=== PATIENT | male | born 1940 | race Hispanic/Latino ===

== ENCOUNTER 2018-01-19 10:24 | Observation (INO) | payer OTHER ==
[~2018-01-19] VITALS: Ht 165.1 cm; Wt 80.3 kg
[~2018-01-19 10:24] MED LIST: ASA-CA CARB-MA325 MG; ASPIR 8181 MG PO; FUROSEMIDE20 MG PO; GLIPIZIDE5 MG PO; LOSARTAN POTASS50 MG PO; OMEGA-31000 MG PO; OMEPRAZOLE20 M1 PO; PRAVASTATIN SOD40 MG PO; Z LOFIBRA; Z.0.GLIPIZIDE5 MG; Z.0.OMEPRAZOLE20 MG; Z.0.SIMVASTATIN80 MG
[2018-01-19] MEDS ORDERED: AMLODIPINE BESYL5 MG PO (10:46)
[2018-01-19] MEDS ORDERED: WARFARIN SODIUM2 MG PO (10:46)
[2018-01-19] MEDS ORDERED: ASPIRIN 81 MG CHEW TAB PO ONE ×2 (11:00→11:45)
[2018-01-19 11:44] LABS: BASOPHILS # (AUTO) 0.1 (0.0-0.1); BASOPHILS % 1.1 % (0.0-1.0); EOSINOPHILS # (AUTO) 0.5 (0.0-0.4); EOSINOPHILS % 6.9 % (0.0-6.0); HEMATOCRIT 31.7 % (38.2-49.6); HEMOGLOBIN 10.6 g/dL (14.0-18.0); LYMPHOCYTES # (AUTO) 1.5 (1.0-3.2); LYMPHOCYTES % 20.1 % (18.0-39.1); MEAN CORPUSCULAR HEMOGLOBIN 31.5 pg (28-32); MEAN CORPUSCULAR HGB CONC 33.4 g/dL (31-35); MEAN CORPUSCULAR VOLUME 94.1 fL (81-99); MONOCYTES # (AUTO) 0.6 (0.2-0.8); MONOCYTES % 8.7 % (4.4-11.3); NEUTROPHILS # (AUTO) 4.6 (2.1-6.9); NEUTROPHILS % 62.6 % (38.7-80.0); PLATELET COUNT 226 x10e3/uL (140-360); RED BLOOD COUNT 3.37 x10e6/uL (4.3-5.7); RED CELL DISTRIBUTION WIDTH 14.1 % (11.7-14.4)
[2018-01-19 11:48] LABS: BILIRUBIN,URINE NEGATIVE (NEGATIVE); CLARITY,URINE SL CLOUDY (CLEAR); COLOR,URINE YELLOW (YELLOW); KETONES,URINE NEGATIVE (NEGATIVE); LEUKOCYTE ESTERASE ,URINE NEGATIVE (NEGATIVE); NITRITE,URINE NEGATIVE (NEGATIVE); PROTEIN,URINE DIPSTICK 2+ (NEGATIVE); URINE UROBILINOGEN 0.2 mg/dL (0.2 - 1)
--- NOTE | 2018-01-19 11:53 | Diagnostic Imaging Report ---
PROCEDURE: A single AP view of the chest. COMPARISON: Chest radiograph 09/15/10. INDICATIONS: DIZZY, WEAKNESS FINDINGS: Lines/tubes: Right sided tunneled catheter with dual lumens, with tip projecting near the cavoatrial junction. The apex of the tunneled catheter is not fully visualized. Lungs: The lungs are well inflated and clear. There is no evidence of pneumonia or pulmonary edema. Pleura: There is no pleural effusion or pneumothorax. Heart and mediastinum: The cardiomediastinal silhouette is unremarkable. Bones and soft tissues: No acute bony abnormality. Surgical clips project over the right neck. IMPRESSION: No acute cardiopulmonary disease. Dictated by: EDUARDO CARRASCO M.D. on 01/19/2018 at 11:58 Electronically approved by: EDUARDO CARRASCO M.D. on 01/19/2018 at 11:58
[2018-01-19 12:01] LABS: AMORPHOUS SEDIMENT,URINE MODERATE (FEW); BACTERIA,URINE FEW /HPF; EPITHELIAL CELLS,URINE FEW /LPF; WBC,URINE (MAN) 0-5 /HPF (0-5)
--- NOTE | 2018-01-19 12:05 | Diagnostic Imaging Report ---
Examination: CT head without contrast Clinical Indication: Confusion. Altered mental status.. Technique: Transaxial noncontrast images from the skull base through the vertex were obtained. Sagittal and coronal reformatted images were done. Comparison: None. Findings: Scalp: No abnormalities. Bones: Intact. No fractures. No blastic or lytic lesions. Brain sulci: Moderate volume loss for patient's age. Ventricles: No hydrocephalus. Extra-axial space: No abnormalities. Parenchyma: There are confluent areas of low-attenuation within subcortical and periventricular white matter, nonspecific, but could represent microvascular ischemic disease. No masses, hemorrhage, or acute or chronic cortical based vascular insults. Suprasellar region: No abnormalities. Craniocervical junction: The foramen magnum is patent. No Chiari one malformation. Impression: 1. No acute intracranial finding. 2. Mild chronic microvascular ischemic change and moderate volume loss. Signed by: Dr. Alison Rojas M.D. on 01/19/2018 12:02 PM
[2018-01-19 12:25] LABS: ALBUMIN 3.3 g/dL (3.5-5.0); ALBUMIN/GLOBULIN RATIO 0.7 (0.8-2.0); ANION GAP 19.1 mmol/L (8-16); CALCIUM 8.5 mg/dL (8.4-10.2); POTASSIUM 4.1 mmol/L (3.5-5.1)
[2018-01-19 12:31] LABS: CREATINE KINASE MB 1.4 ng/mL (0-5.0)
[2018-01-19] MEDS ORDERED: SUPER B COMPLE150 MG PO (12:39)
[2018-01-19] MEDS ORDERED: CALCIUM ACETAT667 M1 PO (12:39)
[2018-01-19] MEDS ORDERED: ZOFRAN ODT4 MG PO (12:39)
[2018-01-19] MEDS ORDERED: GABAPENTIN100 MG PO (12:39)
[2018-01-19] MEDS ORDERED: CETIRIZINE PO (12:39)
[2018-01-19] MEDS ORDERED: TAMSULOSIN PO (12:39)
[2018-01-19] MEDS ORDERED: SENSIPAR30 MG PO (12:39)
[2018-01-19 13:34] VITALS: BP 130/62
[2018-01-19 13:44] VITALS: BP 130/62
[2018-01-19 14:08] LABS: MAGNESIUM 2.1 MG/DL (1.3-2.1)
[2018-01-19 14:09] LABS: INR 3.12; PROTHROMBIN TIME 30.2 seconds (11.9-14.5)
[2018-01-19 14:34] LABS: THYROID STIMULATING HORMONE 1.65 uIU/mL (0.350-4.940)
[2018-01-19 14:52] VITALS: BP 130/62
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
[2018-01-19 15:59] VITALS: BP 123/57
[2018-01-19 16:04] VITALS: BP 123/57
[2018-01-19] MEDS ORDERED: ACETAMINOPHEN 325 MG TAB PO PRN (17:00)
[2018-01-19 20:00] VITALS: BP 124/63
[2018-01-19 21:40] LABS: CREATINE KINASE MB 1.5 ng/mL (0-5.0)
[2018-01-20 00:20] VITALS: BP 121/59
[2018-01-20 04:55] LABS: CREATINE KINASE MB 1.5 ng/mL (0-5.0)
[2018-01-20 05:28] LABS: BASOPHILS # (AUTO) 0.1 (0.0-0.1); BASOPHILS % 0.9 % (0.0-1.0); EOSINOPHILS # (AUTO) 0.9 (0.0-0.4); EOSINOPHILS % 10.7 % (0.0-6.0); HEMATOCRIT 29.6 % (38.2-49.6); HEMOGLOBIN 10.1 g/dL (14.0-18.0); LYMPHOCYTES # (AUTO) 1.7 (1.0-3.2); LYMPHOCYTES % 21.5 % (18.0-39.1); MEAN CORPUSCULAR HGB CONC 34.1 g/dL (31-35); MEAN CORPUSCULAR VOLUME 93.7 fL (81-99); MONOCYTES # (AUTO) 0.8 (0.2-0.8); MONOCYTES % 9.2 % (4.4-11.3); NEUTROPHILS # (AUTO) 4.7 (2.1-6.9); NEUTROPHILS % 57.3 % (38.7-80.0); PLATELET COUNT 191 x10e3/uL (140-360); RED BLOOD COUNT 3.16 x10e6/uL (4.3-5.7); RED CELL DISTRIBUTION WIDTH 13.8 % (11.7-14.4)
[2018-01-20 05:48] VITALS: BP 124/59
[2018-01-20] MEDS ORDERED: NON-FORMULARY MEDICATION (Pravastatin Sodium 40 MG) PO SCH (07:45)
[2018-01-20 08:00] LABS: CHOL/HDL RATIO 3.5 (3.9-4.7)
[2018-01-20 08:42] VITALS: BP 138/70
[2018-01-20] MEDS ORDERED: GABAPENTIN 100 MG CAP PO SCH (09:00)
[2018-01-20] MEDS ORDERED: ASPIRIN 81 MG CHEW TAB PO SCH (09:00)
[2018-01-20] MEDS ORDERED: CINACALCET 30 MG TAB PO SCH (09:00)
[2018-01-20] MEDS ORDERED: ASPIRIN 81 MG ENTERIC COATED PO SCH (09:00)
[2018-01-20] MEDS ORDERED: AMLODIPINE BESYLATE 5 MG TAB PO SCH (09:00)
[2018-01-20] MEDS ORDERED: WARFARIN SOD 2 MG TAB PO SCH (09:00)
[2018-01-20] MEDS ORDERED: GABAPENTIN 300 MG CAP PO SCH (09:00)
--- NOTE | 2018-01-20 09:02 | History and Physical ---
PRIMARY CARE PHYSICIAN: Dr. Gray ENROLLMENT SERVICES DEAN: Dr. Sanchez CHIEF COMPLAINT: Passing out. HISTORY OF PRESENT ILLNESS: [place]-old man with a history of end-stage renal disease, on hemodialysis and diabetes mellitus type 2, now waking up with some shaking symptoms and then passed out on his bed. It is unknown how long he was passed out. Patient states that happened before. He did not have any focal weakness. Now, he has headache. CT scan done here was negative. Cardiology consulted. Denies any symptoms at this time. PAST MEDICAL HISTORY: End-stage renal disease, he is on hemodialysis; diabetes mellitus type 2; hypertension; hyperlipidemia; TIA; GERD; venous thromboembolism of the upper extremity. PAST SURGICAL HISTORY: Cholecystectomy, appendectomy, hemodialysis access. ALLERGIES: PER ELECTRONIC MEDICAL RECORD. FAMILY/SOCIAL HISTORY: Patient is . He has 1 child. No alcohol or illicits. He quit cigarettes 20 years ago. MEDICATIONS: Per electronic medical record. REVIEW OF SYSTEMS: Denies any dizziness, chest pain, shortness of breath, fever, chills, sweats, nausea, vomiting, diarrhea. PHYSICAL EXAMINATION: VITAL SIGNS: Have been reviewed. GENERAL APPEARANCE: Tired-appearing man resting in bed. HEENT: Anicteric. CARDIOVASCULAR: Normal S1 and S2. LUNGS: He has moderate breath sounds. ABDOMEN: Soft, nontender, nondistended. EXTREMITIES: No edema or calf tenderness. MUSCULOSKELETAL: There is right chest hemodialysis catheter. SKIN: Dry. PSYCHIATRIC: Flat affect. LABS: Reviewed. MEDICATIONS: Reviewed. ASSESSMENT: This is a 77-year-old man: 1. Syncope. 2. Anemia of chronic disease. 3. Diabetes mellitus type 2. 4. End-stage renal disease, on hemodialysis. 5. Obesity. 6. Hypertension. 7. History of venous thromboembolism of the upper extremity. 8. Gastroesophageal reflux disease. 9. Supratherapeutic INR. PLAN: 1. CT scan of brain negative. Patient now complaining of some discomfort in his head, which seems to be pulsatile in nature. Will obtain an MRI to rule out any other abnormality. 2. Nephrology consultation for dialysis. 3. Obtain orthostatic vital signs. 4. Will consult physical therapy. 5. Will hold Coumadin as INR is supratherapeutic at 3. . 6. Restart home medications. 7. Follow up cardiology recommendations. Possible stress test now versus outpatient. 8. Discharge planning. Job#: [id number]
--- NOTE | 2018-01-20 12:04 | Diagnostic Imaging Report ---
History: Pain the left side of the head. Comparison studies: CT head 01/19/2018 Technique: Sagittal T2; axial DWI, FLAIR, MPGR, T1, Coronal FLAIR. Intravenous contrast: None Findings: Scalp: Normal in signal . No masses . Bone marrow: Normal in signal intensity. Extra-axial: No masses, no fluid collections. Brain sulci: Mildly prominent. Ventricles: Moderately prominent . . Parenchyma: Scattered small T2/flair hyperintensities of the periventricular and deep white matter. Mild subependymal ventricular capping. Punctate focus of blooming at the left globus pallidus, related to chronic blood products. No masses, acute hemorrhage, acute or chronic vascular insults. Suprasellar region: No abnormalities. Craniocervical junction: No abnormalities. Patent foramen magnum. No Chiari one malformation. Vessels: Normal flow-voids in the arteries and sinuses. IMPRESSION: 1. No acute abnormalities. 2. Mild chronic microvascular ischemic changes of the white matter. 3. Prominent ventricular size out of proportion for the widening of the subarachnoid space, this could be related to central volume loss or normal pressure hydrocephalus, clinical correlation recommended Signed by: DR Michelet Brewer M.D. on 01/20/2018 12:00 PM
[2018-01-20 12:15] VITALS: BP 126/71
[2018-01-20] MEDS ORDERED: SODIUM CHLORIDE 0.9% 1000ML 1,000 ML ONE (15:39)
--- NOTE | 2018-01-20 15:51 | Consultation ---
DATE OF CONSULTATION: January 20, 2018 HISTORY OF PRESENT ILLNESS: Mr. Jhonatan Moraes is a pleasant 77-year-old gentleman known to our nephrology service who has been admitted with apparent shaking and possible syncope. A CT scan was negative. Cardiology has been consulted. Has underlying history of diabetes type 2 with end-stage renal disease, underlying hypertension, has been on dialysis with renal specialist at [facility] for about a year. He also has history of DVT in the upper extremities, history of TIA, GERD, hyperlipidemia, prior appendectomy and cholecystectomy. SOCIAL HISTORY: Patient is . Does not smoke or drink. Used to smoke in the past, has quit now. FAMILY HISTORY: Significant for hypertension. PHYSICAL EXAMINATION GENERAL: Awake, alert, lying supine. No apparent distress. VITALS: Blood pressure 120/59. Pulse rate 88. HEAD AND NECK: Cornea clear. Oral mucosa moist. Neck veins flat. LUNGS: Relatively clear except for bibasilar rales. HEART: S1 and S2 audible. No rubs or gallop. ABDOMEN: Otherwise soft and nontender. EXTREMITIES: No edema. ALLERGIES: He is allergic to PENICILLIN. CURRENT MEDICATIONS: Include famotidine, aspirin to chew, amlodipine 5 mg daily, gabapentin 300 mg daily, simvastatin 20 mg bedtime, Flomax 0.4 mg bedtime, warfarin 5 mg daily. IMPRESSION AND PLAN 1. End-stage renal disease. 2. Fluid overload. 3. Hypertension. 4. Secondary hyperparathyroidism. 5. Anemia. 6. Chronic kidney disease. Recently was admitted at [facility]. Was started on Coumadin for upper extremity deep vein thrombosis. There is no swelling or tenderness noted in the upper extremity. I will arrange for dialysis. Has evidence of mild fluid overload, attempt ultrafiltration on dialysis. Address blood pressure. Start phosphorus binders. Please see orders. Job#: [id number] NORA
[2018-01-20] MEDS ORDERED: FAMOTIDINE 20 MG TAB PO SCH (16:30)
[2018-01-20] MEDS ORDERED: SEVELAMER CARBONATE 800 MG TAB PO SCH (17:00)
[2018-01-20 17:23] VITALS: BP 130/62
[2018-01-20] MEDS ORDERED: NON-FORMULARY MEDICATION ([Tamsulosin] 0.4 MG) PO SCH (21:00)
[2018-01-20] MEDS ORDERED: TAMSULOSIN HCL 0.4 MG CAP PO SCH (21:00)
[2018-01-20] MEDS ORDERED: SIMVASTATIN 20 MG TAB PO SCH (21:00)
== END 2018-01-20 17:55 | disposition home or self-care (01) ==
LOC: ER 10:24 → ERHOLD 11:54 → IMCU 13:11
PROVIDERS: ADMIT Internal Medicine; ATTEND Internal Medicine
DX: R55 Syncope and collapse (principal); I13.11 Hypertensive heart and chronic kidney disease without heart failure, with stage 5 chronic kidney disease, or end stage renal disease; E11.22 Type 2 diabetes mellitus with diabetic chronic kidney disease; N18.6 End stage renal disease; Z99.2 Dependence on renal dialysis; E78.5 Hyperlipidemia, unspecified; Z83.3 Family history of diabetes mellitus; Z82.49 Family history of ischemic heart disease and other diseases of the circulatory system; Z86.73 Personal history of transient ischemic attack (TIA), and cerebral infarction without residual deficits; K21.9 Gastro-esophageal reflux disease without esophagitis; Z86.718 Personal history of other venous thrombosis and embolism; D63.8 Anemia in other chronic diseases classified elsewhere; E66.9 Obesity, unspecified; Z88.0 Allergy status to penicillin; Z79.01 Long term (current) use of anticoagulants; Z90.49 Acquired absence of other specified parts of digestive tract; N25.81 Secondary hyperparathyroidism of renal origin; E87.70 Fluid overload, unspecified
CPT/HCPCS: 36415 ×2; 70450; 70551; 71045; 80053; 80061; 81001; 82550 ×2; 82553 ×2; 82948 ×2; 83036; 83735; 84443; 84484 ×2; 85025 ×2; 85610; 86704; 86706; 87340; 90945; 93005; 93306; 93880; 97161; 99284; G0378 ×2; G8978; G8979; G8980; J7030